=== PATIENT | male | born 1975 | race Caucasian/White ===

== ENCOUNTER 2024-02-09 09:04 | Outpatient (OUT) | payer OTHER, SELFPAY ==
--- NOTE | 2024-02-09 09:31 | RT_ITS ---
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 Findings appeared valid, but did not meet the three acceptable maneuvers criteria. Both pre- and post-bronchodilator values utilized for spirometry. Spirometry (based on pre-bronchodilator values): -FEV1/FVC: Low normal @ 73% -FEV1: Normal @ 95% -FVC: Normal @ 102% -There is no significant bronchodilator response. Flow-volume loop: -'Scooping/coving' of the expiratory limb Impressions: -Spirometry trends towards a mild obstruction pattern. There is no bronchodilator response. This study may suggest underlying COPD. Clinical correlation required. Electronically Signed On 02-10-2024 13:23:57 EDT by Wayne Paniagua
[2024-02-09] MEDS: ALBUTEROL SULFATE 2.5 MG/3 ML VIAL NEB IH (09:34)
== END 2024-02-09 09:05 | disposition home or self-care (01) ==
LOC: CARD 09:05
PROVIDERS: Family Provider Internal Medicine; PCP Internal Medicine
DX: R06.02 Shortness of breath (principal)
CPT/HCPCS: 94060